=== PATIENT | male | born 1980 | race Caucasian/White ===

== ENCOUNTER 2020-08-05 14:30 | Outpatient (CLI) | payer BC, SELFPAY | END 2020-08-05 14:31 | disposition home or self-care (01) | LOC: ANHCOVIDVC 14:31 | DX: Z23 Encounter for immunization (principal) | CPT/HCPCS: 0001A; 91300 ==

== ENCOUNTER 2020-08-26 14:31 | Outpatient (CLI) | payer BC, SELFPAY | END 2020-08-26 14:32 | disposition home or self-care (01) | LOC: ANHCOVIDVC 14:32 | DX: Z23 Encounter for immunization (principal) | CPT/HCPCS: 0002A; 91300 ==